=== PATIENT | female | born 1985 | race Caucasian/White ===

== ENCOUNTER 2024-09-19 00:11 | Emergency (ER) | payer OTHER, SELFPAY ==
[2024-09-19 00:20] VITALS: BP 146/91; PULSE 79; RESP 16; TEMP 36.6; O2SAT 100; BMI 29.9
[2024-09-19] MEDS: SUMAtriptan 6 mg/0.5 mL SDV SUBCUT (03:46)
[2024-09-19] MEDS: ketorolac 30 mg/mL INJ IM (03:47)
[2024-09-19] MEDS: prochlorperazine 10 mg Tablet PO (04:01)
--- NOTE | 2024-09-19 04:31 | ED_ITS ---
HPI - Headache General: Chief Complaint: Headache Stated Complaint: severe migraine hx of tia Time Seen by Provider: 09/19/24 01:05 Source: patient and family Mode of arrival: ambulatory Limitations: no limitations History of Present Illness: Severe migraine, started little yesterday and then worst migraine today this morning when away and came back with a ocular migraine this afternoon and those evening has no relief. Related Data Previous Rx's Medication Instructions Recorded albuterol sulfate 90 mcg/actuation 1 inh inhalation QID PRN shortness 08/19/24 breath activated powder inhaler of breath or wheezing #1 ea methylprednisolone 4 mg tablets in See Rx Instructions PO PER PKG DIR 08/19/24 a dose pack (Medrol (Toby)) #21 ea [id number] 2 tab PO Q6H PRN severe headache 09/19/24 50 mg-325 mg-40 mg tablet (Esgic) #12 tabs Allergies Allergy/AdvReac Type Severity Reaction Status Date / Time latex Allergy Intermediate ALGY-Difficulty Uncoded 08/19/24 08:01 Breathing Review of Systems General: Reports: 10 or more systems reviewed and unremarkable except in HPI and below PFSH ED PFSH: Family History (Updated 07/16/23 @ 10:13 by Dania Hassan LPN) Father Cancer Mother Hypertension Social History (Updated 06/21/24 @ 08:02 by Erika Macedo NP) Smoking and tobacco/nicotine status: never used tobacco/nicotine Second hand smoke exposure: No Alcohol intake: never Substance/Drug Use: never Adopted: No Caregiver/support person: No Lives independently: Yes Household members: spouse Housing: House Marital status: Number of children: 1 service: No Current occupational status: employed Current occupational exposures/hazards: No Pets and animals: Yes Sexually active: Yes Do you think of yourself as: Straight/Heterosexual Current gender identity: Female Verónica/Latter Day: Nondenominational Female Reproductive History: Spontaneous abortions: No Physical Exam Const: COMMON NORMALS: no acute distress, average body habitus, patient orie nted x3, healthy appearing, alert and well nourished GENERAL APPEARANCE: well kempt and well developed OTHER: photophobia due to headache HENMT: COMMON NORMALS: normocephalic, atraumatic, external ears normal and moist oral mucous membranes HEAD & SCALP: normocephalic and atraumatic EXTERNAL EAR: Yes external ears normal Eye: COMMON NORMALS: Equal, round and reactive pupils present, EOMs intact bilaterally and conjunctivae normal CONJUNCTIVA: Yes conjunctivae normal PUPIL: Yes Equal, round and reactive pupils present Neck/C-Spine: COMMON NORMALS: full ROM, no lymphadenopathy and supple Chest: CHEST: Yes Symmetrical chest wall rise and No Surgical scars present (Chest) Resp: COMMON NORMALS: normal respiratory effort, No retractions, No use of accessory muscles and clear to auscultation bilaterally AUSCULTATION: clear to auscultation bilaterally Cardio: COMMON NORMALS: regular rate, regular rhythm, S1 normal heart sound present, S2 normal heart sound present, No gallops present (Cardio), No clicks present (Cardio), No murmurs present (Cardio) and No rub (Cardio) RATE: regular rate RHYTHM: regular rhythm HEART SOUNDS: S1 normal heart sound present, S2 normal heart sound present and no murmurs PERIPHERAL PULSES: other (Radial pulses 2+ and symmetric) GI: COMMON NORMALS: Soft to palpation, non-tender and no masses INSPECTION: No abdominal distension PALPATION: Yes Soft to palpation, No Guarding due to palpation present (GI) and No Rebound tenderness present : COMMON NORMALS: Yes no CVA tenderness BLADDER/KIDNEY EXAM: Yes no CVA tenderness Back/Pelvis: COMMON NORMALS: no CVA tenderness Extremity: COMMON NORMALS: normal to inspection, full ROM, capillary refill normal and no clubbing, cyanosis or edema Neuro: COMMON NORMALS: patient oriented x3 SENSORIUM/ORIENTATION: Yes alert Psych: APPEARANCE: Yes well kempt Skin: COMMON NORMALS: no rashes or lesions noted, no wounds, turgor normal and no jaundice GENERAL SKIN EXAM: no rashes or lesions noted and turgor normal Course Vital Signs: Vital signs: Vital Signs Temperature 97.8 F 09/19/24 00:20 Pulse Rate 79 09/19/24 00:20 Respiratory Rate 16 09/19/24 00:20 Blood Pressure 146/91 09/19/24 00:20 Pulse Oximetry 100 09/19/24 00:20 Oxygen Delivery Me thod Room Air 09/19/24 00:20 MDM - Headache Medical Decision Making Patient with severe headache, has a history of migraines. Reports had ocular migraine earlier notes hurting on the opposite side and she cannot get any relief. Has tried home medications as well as Excedrin. Given Compazine p.o., Toradol and Imitrex IM and headache resolved. Differential Diagnosis Likely migraine and tension headache Medical Records I reviewed the patient's medical records. Lab Data I reviewed the patient's lab results. No radiology studies performed this visit Discharge Plan Discharge Patient Disposition: Home Clinical Impression: Intractable migraine without aura Condition: Stable Prescriptions: New trocmmhyvw-nrpjvozyqbiux-vjva [Esgic] 50-325-40 mg tablet 2 tab PO Q6H PRN (Reason: severe headache) Qty: 12 0RF No Action albuterol sulfate 90 mcg/actuation aerosol powdr breath activated 1 inh inhalation QID PRN (Reason: shortness of breath or wheezing) Qty: 1 0RF methylprednisolone [Medrol (Toby)] 4 mg tablets,dose pack See Rx Instructions PO PER PKG DIR Qty: 21 0RF Rx Instructions: PO PER PKG DIR Discharge Orders: Discharge ED (Routine); Ordered 09/19/24 Ordered By: Ilir Mancia Discharge Diet: Usual diet Discharge Activity: Resume usual activity and Increase activity as tolerated Coding Level of Care Code ED 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
[2024-09-19 04:51] VITALS: BP 127/79; PULSE 88; RESP 16; O2SAT 98
== END 2024-09-19 04:54 | disposition home or self-care (01) ==
PROVIDERS: Emergency Provider Emergency Medicine; PCP Family Medicine
DX: G43.919 Migraine, unspecified, intractable, without status migrainosus (principal)
CPT/HCPCS: 96372; 99284; J1885; J3030; Q0164